=== PATIENT | male | born 2000 | race African-American/Black ===

== ENCOUNTER 2020-07-15 09:52 | Emergency (ER) | payer OTHER ==
[~2020-07-15] VITALS: Ht 180.3 cm; Wt 59.0 kg
[2020-07-15 09:53] VITALS: TEMP 98.9
[2020-07-15 10:37] LABS: PLATELET COUNT 282 K/uL (142-355)
[2020-07-15 10:52] LABS: POTASSIUM 3.4 mmol/L (3.6-5.2)
[2020-07-15 22:10] VITALS: BP 132/69
== END 2020-07-15 22:10 | disposition still patient (30) ==
LOC: ED 09:52
PROVIDERS: Family Medicine
PROC: 0HQEXZZ Repair Left Lower Arm Skin, External Approach (ICD-10-PCS; principal; 2020-07-15)
DX: T14.91XA Suicide attempt, initial encounter (principal); S61.512A Laceration without foreign body of left wrist, initial encounter; X78.9XXA Intentional self-harm by unspecified sharp object, initial encounter; Y92.89 Other specified places as the place of occurrence of the external cause
CPT/HCPCS: 80053; 80307; 80320; 80329; 81000; 85027; 90471; 90715; 99285